=== PATIENT | female | born 1990 | race African-American/Black ===

== ENCOUNTER 2021-10-09 21:34 | Emergency (ER) | payer SELFPAY ==
[~2021-10-09] VITALS: Ht 180.3 cm; Wt 79.0 kg
[2021-10-09] MEDS ORDERED: LORAZEPAM 2MG/ML CPJ IV ONE (22:00)
[2021-10-09 22:33] LABS: BASOPHILS % 0.4 % (0.0-2.0); EOSINOPHILS % 0.4 % (0.0-5.0); HEMATOCRIT. 36.6 % (36.0-48.0); HEMOGLOBIN. 12.5 g/dL (12.0-16.0); LYMPHOCYTES % 10.9 % (20.0-50.0); MEAN CORPUSCULAR HEMOGLOBIN 30.3 pg (28.0-32.0); MEAN CORPUSCULAR VOLUME 88.9 fL (81.0-99.0); MEAN PLATELET VOLUME 9.1 fl (7.4-10.4); NEUTROPHILS % 77.3 % (40.0-76.0); PLATELET 238 x1000/uL (130-400); RED BLOOD CELL COUNT 4.12 mill/uL (4.2-5.4); RED CELL DISTRIBUTION WIDTH 16.3 % (11.6-14.6)
[2021-10-09 22:42] LABS: CHLORIDE 106 mEq/L (98-107)
[2021-10-09 22:46] LABS: HCG SCREEN NEGATIVE
[2021-10-09 22:49] LABS: ETHANOL BLOOD < 10 mg/dL
[2021-10-10 03:14] LABS: CLARITY URINE CLEAR (CLEAR); COLOR URINE YELLOW (YELLOW); KETONES URINE 4+ (NEGATIVE); LEUKOCYTE ESTERASE URINE TRACE (NEGATIVE); NITRITE URINE NEGATIVE (NEGATIVE); OCCULT BLOOD URINE 3+ (NEGATIVE); PROTEIN URINE 1+ (NEGATIVE); SPECIFIC GRAVITY URINE 1.031 (1.005-1.030)
[2021-10-10] MEDS ORDERED: LORAZEPAM 1MG TABLET PO ONE (03:15)
[2021-10-10 03:30] LABS: *AMPHETAMINES SCREEN URINE NEGATIVE (NEGATIVE); *BARBITURATES SCREEN URINE NEGATIVE (NEGATIVE); *BENZODIAZEPINES SCREEN URINE NEGATIVE (NEGATIVE); *COCAINE SCREEN URINE NEGATIVE (NEGATIVE); METHADONE URINE SCREEN NEGATIVE (NEGATIVE)
[2021-10-10 03:31] LABS: CANNABINOID URINE SCREEN NEGATIVE (NEGATIVE); OPIATES URINE SCREEN NEGATIVE (NEGATIVE); PHENCYCLIDINE URINE SCREEN NEGATIVE (NEGATIVE)
[2021-10-10] MEDS ORDERED: LURA20TA MT (12:14)
[2021-10-10 12:30] VITALS: BP 118/71
[2021-10-11] MEDS ORDERED: NITR100C PO (13:08)
== END 2021-10-10 12:30 | disposition home or self-care (01) ==
LOC: ER 21:34
DX: R45.851 Suicidal ideations (principal); F10.229 Alcohol dependence with intoxication, unspecified; Y90.0 Blood alcohol level of less than 20 mg/100 ml
CPT/HCPCS: 36415; 80053; 80305; 80307; 80320; 80329; 81003; 81025; 84703; 85025; 96374; 99285; J2060; G0480

== ENCOUNTER 2021-10-11 00:29 | Emergency (ER) | payer SELFPAY ==
[~2021-10-11] VITALS: Ht 180.3 cm; Wt 98.0 kg
[~2021-10-11 00:29] MED LIST: LURA20TA MT
[2021-10-11 01:41] LABS: CLARITY URINE CLEAR (CLEAR); COLOR URINE YELLOW (YELLOW); KETONES URINE 2+ (NEGATIVE); LEUKOCYTE ESTERASE URINE TRACE (NEGATIVE); NITRITE URINE POSITIVE (NEGATIVE); OCCULT BLOOD URINE 2+ (NEGATIVE); PROTEIN URINE TRACE (NEGATIVE); SPECIFIC GRAVITY URINE 1.034 (1.005-1.030)
[2021-10-11 01:59] LABS: *BARBITURATES SCREEN URINE NEGATIVE (NEGATIVE); *BENZODIAZEPINES SCREEN URINE NEGATIVE (NEGATIVE); *COCAINE SCREEN URINE NEGATIVE (NEGATIVE)
[2021-10-11 02:00] LABS: BASOPHILS % 0.8 % (0.0-2.0); EOSINOPHILS % 5.1 % (0.0-5.0); HEMOGLOBIN. 12.9 g/dL (12.0-16.0); LYMPHOCYTES % 11.3 % (20.0-50.0); MEAN CORPUSCULAR VOLUME 88.5 fL (81.0-99.0); MEAN PLATELET VOLUME 9.3 fl (7.4-10.4); MONOCYTES % 13.2 % (2.0-8.0); NEUTROPHILS % 69.6 % (40.0-76.0); PLATELET 254 x1000/uL (130-400); RED BLOOD CELL COUNT 4.29 mill/uL (4.2-5.4); RED CELL DISTRIBUTION WIDTH 16.2 % (11.6-14.6)
[2021-10-11 02:00] LABS: *AMPHETAMINES SCREEN URINE NEGATIVE (NEGATIVE); CANNABINOID URINE SCREEN NEGATIVE (NEGATIVE); METHADONE URINE SCREEN NEGATIVE (NEGATIVE); OPIATES URINE SCREEN NEGATIVE (NEGATIVE); PHENCYCLIDINE URINE SCREEN NEGATIVE (NEGATIVE)
[2021-10-11 02:07] LABS: CHLORIDE 108 mEq/L (98-107)
[2021-10-11 02:11] LABS: ETHANOL BLOOD < 10 mg/dL
[2021-10-11] MEDS ORDERED: CEPHALEXIN 250MG CAPSULE PO ONE (02:30)
[2021-10-11] MEDS ORDERED: IBUPROFEN 600MG TABLET PO ONE (02:45)
[2021-10-11 02:56] LABS: HCG SCREEN NEGATIVE
[2021-10-11] MEDS ORDERED: LORAZEPAM 1MG TABLET PO ONE (03:00)
[2021-10-11] MEDS ORDERED: OLANZAPINE 10 MG/VIAL IM ONE (04:15)
[2021-10-11] MEDS ORDERED: NITR100C PO (13:08)
[2021-10-11 17:30] VITALS: BP 121/83
[2021-10-11] MEDS ORDERED: RISPERIDONE 1MG TABLET PO SCH (21:00)
== END 2021-10-11 17:32 | disposition home or self-care (01) ==
LOC: ER 00:29
DX: F33.9 Major depressive disorder, recurrent, unspecified (principal); R44.1 Visual hallucinations; J02.9 Acute pharyngitis, unspecified; N39.0 Urinary tract infection, site not specified; R45.1 Restlessness and agitation; Z20.822 Contact with and (suspected) exposure to COVID-19; F10.20 Alcohol dependence, uncomplicated; Y90.0 Blood alcohol level of less than 20 mg/100 ml
CPT/HCPCS: 36415; 80053; 80305; 80307; 80320; 80329; 81003; 81025; 84703; 85025; 96372; 99285; C9803; J3490; U0003; U0005; G0480

== ENCOUNTER 2022-07-19 03:51 | Emergency (ER) | payer SELFPAY ==
[~2022-07-19] VITALS: Ht 175.3 cm; Wt 86.0 kg
[~2022-07-19 03:51] MED LIST changes: +NITR100C PO
[2022-07-19 03:53] VITALS: BP 157/100
== END 2022-07-19 05:55 | disposition home or self-care (01) ==
LOC: ER 03:51
DX: F12.90 Cannabis use, unspecified, uncomplicated (principal)
CPT/HCPCS: 99283

== ENCOUNTER 2022-07-19 06:06 | Emergency (ER) | payer SELFPAY ==
[~2022-07-19] VITALS: Ht 185.4 cm; Wt 100.2 kg
[2022-07-19 06:15] VITALS: BP 140/81
== END 2022-07-19 09:34 | disposition left against medical advice (07) ==
LOC: ER 06:22
DX: Z53.21 Procedure and treatment not carried out due to patient leaving prior to being seen by health care provider (principal)